=== PATIENT | female | born 1960 | race Hispanic/Latino ===

== ENCOUNTER 2017-01-27 11:44 | Outpatient (CLI) | payer BC ==
--- NOTE | 2017-01-27 16:01 | Mammography Report ---
BILATERAL DIGITAL SCREENING MAMMOGRAM with CAD: 01/27/17 11:44:00 CLINICAL: Routine screening. COMPARISON:01/08/16 FINDINGS: The breasts are almost entirely fatty. No mass, architectural distortion or suspicious calcifications. IMPRESSION: No mammographic evidence of malignancy. BI-RADS CATEGORY: 1 - - Negative RECOMMENDATION: Routine mammographic screening in one year. COMMENT: Patient follow-up letters are generated by our [facility] application.
== END 2017-01-27 11:45 | disposition home or self-care (01) ==
LOC: SPVWC 11:44
PROVIDERS: ATTEND Family Medicine
DX: Z12.31 Encounter for screening mammogram for malignant neoplasm of breast (principal)
CPT/HCPCS: 77067; G0202

== ENCOUNTER 2018-02-06 12:19 | Outpatient (CLI) | payer BC | END 2018-02-06 12:20 | disposition home or self-care (01) | LOC: LAB 12:19 | PROVIDERS: ATTEND Urology | DX: Z85.51 Personal history of malignant neoplasm of bladder (principal); Z88.1 Allergy status to other antibiotic agents | CPT/HCPCS: 88112 ==

== ENCOUNTER 2018-10-10 20:27 | Emergency (ER) | payer BC ==
[2018-10-10] MEDS ORDERED: KETALAR IV ONE (21:34)
[2018-10-10] MEDS ORDERED: DIPRIVAN 10 MG/ML IV ONE (21:34)
[2018-10-10] MEDS ORDERED: ZOFRAN IV ONE (21:34)
[2018-10-10] MEDS ORDERED: NACL 0.9% 500 ML 500 ML IV ONE (21:34)
--- NOTE | 2018-10-10 21:45 | Emergency Department Report ---
ED General Adult HPI - General Chief complaint: Extremity Injury, Lower Stated complaint: DISLOCATED LEFT KNEE Time Seen by Provider: 10/10/18 21:24 Source: patient, family, EMS (ems notes not available at time of chart dictation), RN notes reviewed Mode of arrival: Stretcher Limitations: Physical Limitation - History of Present Illness Initial comments: This is a 57-year-old female who is not known to this provider previously. 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 She reports a resolved history of bladder cancer. She is not taking any prescription medications currently, with the exception of allergy medications, as per the patient's history. Patient reports being in her usual state of he alth earlier on today, when she slipped off a ladder, and believes that her left leg twisted, and possibly got stuck. Prior to falling, she was not having any complaints. She believes that she fell 2-3 feet. She did not hit her head, neck, chest, or abdomen. She denies extremity weakness, numbness. She complains of sharp left knee pain, and left lower extremity pain. Her pain is intermittent, does not radiate anywhere, increases with palpation and decreases with rest. No oral intake within the past 4 hours. -: Sudden Location: left Radiation: non-radiation Quality: aching Consistency: intermittent Improves with: rest Worsens with: movement - Related Data Home Medications Medication Instructions Recorded Confirmed Last Taken Fexofenadine/Pseudoephedrine 1 each PO QDAY 04/03/13 04/03/13 04/08/13 08:00 [Fexofenadine-Pse ER 180-240 Tb] Previous Rx's Medication Instructions Recorded Last Taken Type Ondansetron [Zofran] 4 mg PO Q6HR PRN #10 tablet 04/09/13 Unknown Rx oxyCODONE /ACETAMINOPHEN [Percocet 1 tab PO 6XD PRN #20 tablet 04/09/13 Unknown Rx 5/325] Acetaminophen [Tylenol Arthritis] 650 mg PO Q6HR PRN #30 tablet.er 10/10/18 Unknown Rx Ibuprofen [Motrin] 600 mg PO Q8H PRN #30 tablet 10/10/18 Unknown Rx oxyCODONE [Roxicodone] 5 mg PO Q6HR PRN #15 tablet 10/10/18 Unknown Rx Allergies Allergy/AdvReac Type Severity Reaction Status Date / Time Sulfa (Sulfonamide Allergy Rash Verified 04/08/13 13:26 Antibiotics) ED Review of Systems ROS: Stated complaint: DISLOCATED LEFT KNEE Other details as noted in HPI Constitutional: denies: fever Eyes: denies: eye discharge ENT: denies: epistaxis Respiratory: denies: cough Cardiovascular: denies: chest pain Gastrointestinal: denies: abdominal pain Musculoskeletal: joint swelling, arthralgia, myalgia Neurological: denies: weakness, numbness, paresthesias Psychiatric: denies: anxiety ED Past Medical Hx - Past Medical History Previous Medical History?: No - Surgical History Past Surgical History?: No - Social History Smoking Status: Never Smoker Substance Use Type: None - Medications Home Medications: Home Medications Medication Instructions Recorded Confirmed Last Taken Type Fexofenadine/Pseudoephedrine 1 each PO QDAY 04/03/13 04/03/13 04/08/13 08:00 History [Fexofenadine-Pse ER 180-240 Tb] Ondansetron [Zofran] 4 mg PO Q6HR PRN #10 tablet 04/09/13 Unknown Rx oxyCODONE /ACETAMINOPHEN [Percocet 1 tab PO 6XD PRN #20 tablet 04/09/13 Unknown Rx 5/325] Acetaminophen [Tylenol Arthritis] 650 mg PO Q6HR PRN #30 tablet.er 10/10/18 Unknown Rx Ibuprofen [Motrin] 600 mg PO Q8H PRN #30 tablet 10/10/18 Unknown Rx oxyCODONE [Roxicodone] 5 mg PO Q6HR PRN #15 tablet 10/10/18 Unknown Rx ED Physical Exam - General Limitations: Physical Limitation General appearance: alert, in no apparent distress, obese - Head Head exam: Present: atraumatic, normocephalic - Eye Eye exam: Present: normal appearance, EOMI. Absent: nystagmus - ENT ENT exam: Present: normal exam, normal orophraynx, mucous membranes moist, normal external ear exam - Neck Neck exam: Present: normal inspection, full ROM. Absent: tenderness, meningismus - Respiratory Respiratory exam: Present: normal lung sounds bilaterally. Absent: respiratory distress - Cardiovascular Cardiovascular Exam: Present: regular rate, normal rhythm, normal heart sounds. Absent: bradycardia, tachycardia, irregular rhythm, systolic murmur, diastolic murmur, rubs, gallop - GI/Abdominal GI/Abdominal exam: Present: soft. Absent: distended, tenderness, guarding, rebound, rigid, pulsatile mass - Extremities Exam Extremities exam: Present: normal inspection (2+ pulses noted in the bilateral upper, lower extremities. 5 out of 5 strength bilateral upper, lower extremities. Muscular compartment soft.), tenderness (patient has a laterally displaced left patella, and proximal left fibular tenderness. The anterior compartments are soft.), normal capillary refill. Absent: calf tenderness - Back Exam Back exam: Present: normal inspection, full ROM. Absent: tenderness, CVA tenderness (R), paraspinal tenderness, vertebral tenderness - Neurological Exam Neurological exam: Present: alert, other (Extraocular movements intact. Tongue midline. No facial droop. Facial sensation intact to light touch in the V1, V2, V3 distribution bilaterally. 5 and 5 strength in 4 extremities.. Sensation is intact to light touch in 4 extremities.). Absent: motor sensory deficit - Psychiatric Psychiatric exam: Present: normal affect, normal mood - Skin Skin exam: Present: warm, dry, intact, normal color. Absent: rash ED Course Vital Signs 10/10/18 10/10/18 10/10/18 20:30 22:27 22:34 Temperature 98.2 F Temperature [ 97.8 F Intra-Procedure ] Temperature [ 97.7 F Post-Procedure] Temperature [ 97.8 F Pre-Procedure] Pulse Rate 80 89 Pulse Rate [ 98 H Intra-Procedure ] Pulse Rate [ 100 H Post-Procedure] Pulse Rate [Pre 94 H -Procedure] Respiratory 20 37 H Rate Respiratory 14 Rate [Intra- Procedure] Respiratory 19 Rate [Post- Procedure] Respiratory 21 Rate [Pre- Procedure] Blood Pressure 146/86 Blood Pressure 166/81 [Intra- Procedure] Blood Pressure 154/67 [Pre-Procedure] Blood Pressure 150/69 [Right] O2 Sat by Pulse 100 16 L Oximetry O2 Sat by Pulse 100 Oximetry [Pre- Procedure] 10/10/18 22:50 Temperature Temperature [ Intra-Procedure ] Temperature [ Post-Procedure] Temperature [ Pre-Procedure] Pulse Rate Pulse Rate [ Intra-Procedure ] Pulse Rate [ Post-Procedure] Pulse Rate [Pre -Procedure] Respiratory 18 Rate Respiratory Rate [Intra- Procedure] Respiratory Rate [Post- Procedure] Respiratory Rate [Pre- Procedure] Blood Pressure Blood Pressure [Intra- Procedure] Blood Pressure [Pre-Procedure] Blood Pressure [Right] O2 Sat by Pulse Oximetry O2 Sat by Pulse Oximetry [Pre- Procedure] - Reevaluation(s) Reevaluation #1: 10/10/18 22:14 Differential diagnosis, including not limited to: Fracture, dislocation Assessment and plan: 57-year-old female status post mechanical fall, clinically sober, GCS of 15, with initial x-ray showing left lateral patellar dislocation, left proximal fibular fracture. Additional x-rays ordered. Counseled patient that I would recommend moderate sedation for reduction of patellar dislocation, and application of a splint after completion of acquisition of her x-rays. Patient verbalizes unders tanding. Risks of moderate sedation were discussed with the patient, including remote possibilities of respiratory depression, arrest, and cardiac arrest. Patient is in good health, middle-aged, somewhat obese, therefore ASA class II. No tobacco use. No issues with sedation in the past. Patient gives verbal and informed written consent for moderate sedation. X-rays pending at this time. Reevaluation #2: 10/10/18 22:45 X-ray of the pelvis, femur negative for acute disease. X-ray of the tibia/fibula demonstrate only proximal fibular fracture. Patient's was sedated with 50 mg of ketamine, and 25 mg of propofol, the left patella dislocation was reduced, and a long left leg sugar tong splint is applied, and then a full-length knee immobilizer is applied. The patient tolerated this procedure well. No obvious complications are appreciated as far. Reevaluation #3: 10/10/18 23:00 Patient is awake and alert now. Moving toes. Pulses intact. Has no pain at this time. Patient will be observed as per nursing protocol post-sedation, and then discharged once nursing protocol has been satisfied. I have reiterated discharge instructions to the patient and family, who verbalize understanding. - Moderate Sedation Indications: fracture/dislocation redu ASA Class: II Mallampati Airway Score: 2 Preparation: child monitor applied, pulse oximeter, capnometry used, supplemental O2 applied, suction/airway equipment at bedside, IV secured Ketamine: IV Ketamine Dose: 50 IV Propofol Dose (mgs): 25 Complications: none Patient Tolerated Procedure: well - Orthopedic Joint Reduction Joint #1 Consent Obtained: verbal consent, written consent, emergent situation Time Out Performed: Yes Side: left Joint Reduction Location: knee/patella Analgesia: moderate sedation Post-Reduction Neuro Exam: intact Post-Reduction Vascular Exam: intact Post Reduction X-Ray Obtained: No (clinically reduced) Splint Applied: Yes Patient Tolerated Procedure: well - Orthopedic Splinting/Casting Injury #1 Side: left Lower Extremity Injury Location: knee, lower leg Lower Extremity Immobilizer: knee immobilizer (Sugar tong splint) Other Orthopedic Equipment: crutches ED Medical Decision Making - Lab Data Vital Signs 10/10/18 10/10/18 20:30 22:27 Temperature 98.2 F Temperature [ 97.8 F Intra-Procedure ] Temperature [ 97.7 F Post-Procedure] Temperature [ 97.8 F Pre-Procedure] Pulse Rate 80 Pulse Rate [ 98 H Intra-Procedure ] Pulse Rate [ 100 H Post-Procedure] Pulse Rate [Pre 94 H -Procedure] Respiratory 20 Rate Respiratory 14 Rate [Intra- Procedure] Respiratory 19 Rate [Post- Procedure] Respiratory 21 Rate [Pre- Procedure] Blood Pressure 146/86 Blood Pressure 166/81 [Intra- Procedure] Blood Pressure 154/67 [Pre-Procedure] O2 Sat by Pulse 100 Oximetry O2 Sat by Pulse 100 Oximetry [Pre- Procedure] - Radiology Data Radiology results: report reviewed, image reviewed Critical care attestation.: If time is entered above; I have spent that time in minutes in the direct care of this critically ill patient, excluding procedure time. ED Disposition Clinical Impression: Dislocation of left patella, Fracture of left proximal fibula Disposition: - TO HOME OR SELFCARE Is pt being admited?: No Does the pt Need Aspirin: No Condition: Good Instructions: Leg Fracture (ED), Moderate Sedation (ED), Patellar Dislocation (ED) Additional Instructions: Pain typically gets worse before it gets better after fracture, dislocation, and mechanical fall. Rest, avoid heavy lifting, and remain nonweightbearing on the left lower extremity. Use the crutches as directed, keep the splint in place and follow up with an orthopedist within the next 5-7 days. Take pain medication as needed/directed, do not consume alcohol taking oxycodone, and do not drive, or make important decisions of taking the oxycodone. Return to the emergency room right away with new pain, worsening of pain, migration of pain, extremity weakness, numbness, projectile vomiting, change in mental status, confusion,, worsening or different symptoms not present on the initial ER evaluation. Prescriptions: Ibuprofen [Motrin] 600 mg PO Q8H PRN #30 tablet PRN Reason: Pain oxyCODONE [Roxicodone] 5 mg PO Q6HR PRN #15 tablet PRN Reason: Pain Acetaminophen [Tylenol Arthritis] 650 mg PO Q6HR PRN #30 tablet.er PRN Reason: Pain Referrals: YULIANA GREENFIELD MD [Primary Care Provider] - 3-5 Days LIONEL COYNE MD [Staff Physician] - 3-5 Days [facility] [Provider Group] - 3-5 Days Forms: Work/School Release Form(ED)
[2018-10-10] MEDS ORDERED: KETAMINE HCL IV ONE (22:00)
[2018-10-10] MEDS ORDERED: SODIUM CHLORIDE FLUSH SYRINGE 10 ML IV NR (22:00)
--- NOTE | 2018-10-10 22:01 | XRay Report ---
PROCEDURE: XR KNEE 1-2V LT TECHNIQUE: Left knee radiographs, AP, lateral, and crosstable lateral views. HISTORY: trauma COMPARISONS: None FINDINGS: There is a lateral patellar dislocation. An acute oblique comminuted fracture is noted involving the proximal diaphysis and fibular separation of the fragments by about 6 mm. No radiopaque foreign dk s. There is no obvious joint effusion. IMPRESSION: Lateral patellar dislocation Acute proximal fibular diaphysis fracture This document is electronically signed by Luis Horton MD., October 10 2018 09:59:46 PM ET
--- NOTE | 2018-10-10 22:39 | XRay Report ---
PROCEDURE: XR TIBIA FIBULA 2V LT TECHNIQUE: Left tibia and fibula radiographs, AP and lateral views. HISTORY: fall leg pain COMPARISONS: None. FINDINGS: Fracture (s) and/or Dislocation(s): An acute comminuted fracture is noted involving the proximal keila physis of fibula with separation of the fragments by about 6 mm.. Soft tissues: Normal. Bone mineralization: Normal. Foreign bodies: None. IMPRESSION: Limited study due to the overlying artifacts Acute fracture proximal fibular diaphysis. This document is electronically signed by Luis Horton MD., October 10 2018 10:37:29 PM ET
--- NOTE | 2018-10-10 22:41 | XRay Report ---
PROCEDURE: XR PELVIS 1-2V TECHNIQUE: Pelvis radiograph, one view. HISTORY: fall leg pain COMPARISONS: None FINDINGS: Fracture(s): None Joint spaces: Bilateral hip joints are normal. Bilateral facet arthropathy is noted involving lower l umbar spine. Soft tissues: Normal Foreign bodies: None Bone mineralization: Normal IMPRESSION: No acute abnormality This document is electronically signed by uLis Horton MD., October 10 2018 10:39:14 PM ET
--- NOTE | 2018-10-10 22:43 | XRay Report ---
PROCEDURE: XR FEMUR 2+V LT TECHNIQUE: Left femur radiographs, AP and lateral views. HISTORY: fall leg pain COMPARISONS: None . FINDINGS: Limited study due to patient's body habitus. Bony alignment is within normal limits. An obvious acute fracture is not identified. Soft tissues are unremarkable. There are no radiopaque foreign bodies. IMPRESSION: Limited study due to patient's body habitus No obvious acute abnormality This document is electronically signed by Luis Horton MD., October 10 2018 10:40:52 PM ET
[2018-10-11 00:08] VITALS: BP 137/69
== END 2018-10-11 00:07 | disposition home or self-care (01) ==
LOC: ED 20:27
DX: S83.005A Unspecified dislocation of left patella, initial encounter (principal); S82.832A Other fracture of upper and lower end of left fibula, initial encounter for closed fracture; W11.XXXA Fall on and from ladder, initial encounter; Y93.89 Activity, other specified; Y92.89 Other specified places as the place of occurrence of the external cause; Y99.8 Other external cause status
CPT/HCPCS: 27560; 72170; 73552; 73560; 73590; 96374; 99285; J2405; J2704; J7040

== ENCOUNTER 2019-03-04 14:33 | Outpatient (CLI) | payer BC ==
--- NOTE | 2019-03-04 16:21 | XRay Report ---
LEFT TIBIA AND FIBULA, 2 VIEWS INDICATION: S83.005A, UNSPECIFIED DISLOCATION OF LEFT PATELLA, INITIAL ENENCO. COMPARISON: None. IMPRESSION: No acute osseous or soft tissue abnormality. Chronic remodeling fracture of the proxi mal fibular shaft is noted. Signer Name: Markos Dias Jr, MD Signed: 03/04/2019 4:17 PM Workstation Name: [id number]
== END 2019-03-04 14:34 | disposition home or self-care (01) ==
LOC: XRAY 14:33
PROVIDERS: ATTEND Orthopaedic Surgery
DX: S82.402A Unspecified fracture of shaft of left fibula, initial encounter for closed fracture (principal); Z90.89 Acquired absence of other organs; X58.XXXA Exposure to other specified factors, initial encounter; Y93.89 Activity, other specified; Y92.89 Other specified places as the place of occurrence of the external cause; Y99.8 Other external cause status

== ENCOUNTER 2020-06-17 11:18 | Outpatient (CLI) | payer BC ==
[2020-06-17 13:18] LABS: Basophils % (Auto) 0.6 % (0.0-1.8); Eosinophils # (Auto) 0.1 K/mm3 (0.0-0.4); Eosinophils % (Auto) 2.1 % (0.0-4.3); Hematocrit 39.4 % (30.3-42.9); Hemoglobin 13.7 gm/dl (10.1-14.3); Lymphocytes # (Auto) 1.9 K/mm3 (1.2-5.4); Lymphocytes % (Auto) 27.2 % (13.4-35.0); Mean Corpuscular HGB Conc 35 % (30-34); Mean Corpuscular Volume 90 fl (79-97); Monocytes # (Auto) 0.5 K/mm3 (0.0-0.8); Monocytes % (Auto) 6.6 % (0.0-7.3); Platelet Count 231 K/mm3 (140-440); Red Blood Count 4.36 M/mm3 (3.65-5.03); Red Cell Distribution Width 13.7 % (13.2-15.2)
--- NOTE | 2020-06-17 13:27 | Mammography Report ---
DIGITAL SCREENING MAMMOGRAM WITH CAD, 06/17/2020 CLINICAL INFORMATION / INDICATION: Routine screening mammography. SCREENING MAMMO TECHNIQUE: Digital bilateral 2D mammography was obtained in the craniocaudal and mediolateral obliqu e projections. This examination was interpreted with the benefit of Computer-Aided Detection analysis . COMPARISON: Prior mammogram 01/27/2017 FINDINGS: Breast Density: The breasts are almost entirely fatty. No dominant mass, suspicious calcifications, or architectural distortion in the right breast. There is a 9 mm nodular density seen in the 2 to 3:00 position of the left breast, middle depth, whic h requires further evaluation. IMPRESSION: 1. A nodular density in the left breast requires further evaluation with targeted ultrasound and janine tional views if needed. Follow up recommendation: Ultrasound BI-RADS Category 0: Incomplete. Needs additional imaging evaluation and/or prior mammograms for ramesh salguero. A "normal" or negative report should not discourage follow up or biopsy of a clinically significant f inding. A written summary of these findings will be mailed to the patient. The patient will be entered into a mammography reporting system which will generate a reminder letter for the patient's next appointmen t at the appropriate interval. The [employer] recommends yearly mammograms starting at age 40 and continuing as l sean as a woman is in good health. Breast MRI is recommended for women with an approximate 20-25% or greater lifetime risk of breast cancer, including women with a strong family history of breast or ova angelo cancer or who have been treated for Hodgkin's disease. Signer Name: Kassandra Fitch MD Signed: 06/17/2020 1:23 PM Workstation Name: [id number]
[2020-06-17 13:32] LABS: Alanine Aminotransferase 32 units/L (7-56); Blood Urea Nitrogen 15 mg/dL (7-17); Calcium 9.8 mg/dL (8.4-10.2); Chol/HDL Ratio 3.66 %; HDL Cholesterol 62 mg/dL (40-59); Hemolysis Index 5; LDL Cholesterol,Direct 152 mg/dL (50-130)
[2020-06-17 13:35] LABS: BUN/Creatinine Ratio 21
[2020-06-17 13:44] LABS: Free T4 (Free Thyroxine) 0.87 ng/dL (0.76-1.46)
== END 2020-06-17 11:19 | disposition home or self-care (01) ==
LOC: MAMMO 11:18
PROVIDERS: ATTEND Family Medicine
DX: Z12.31 Encounter for screening mammogram for malignant neoplasm of breast (principal); N63.25 Unspecified lump in the left breast, overlapping quadrants; Z00.00 Encounter for general adult medical examination without abnormal findings; Z85.51 Personal history of malignant neoplasm of bladder; Z13.29 Encounter for screening for other suspected endocrine disorder; Z13.220 Encounter for screening for lipoid disorders
CPT/HCPCS: 36415; 77067; 80053; 80061; 83036; 84439; 84443; 85025

== ENCOUNTER 2020-07-01 09:56 | Outpatient (CLI) | payer BC ==
--- NOTE | 2020-07-01 10:44 | Ultrasound Report ---
LEFT BREAST ULTRASOUND INDICATION: Evaluate finding noted in the left upper outer breast on the recent screening mammogram. COMPARISON: 06/17/2020, 01/27/2017, 01/08/2016. FINDINGS: A targeted ultrasound of the left upper outer breast was performed to evaluate the site of previously noted finding which was seen in this region on the recent screening mammogram. Located at the 2:00 position, 4 cm from the nipple, is a 4 x 3 x 3 mm circumscribed hypoechoic lesion. The findi ng is felt to reflect a mildly complicated or debris filled cyst. Its location would appear to corres pond with the mammographic finding. IMPRESSION: Suspected mildly complicated left breast cyst at the 2:00 position for which six-month follow-up left breast diagnostic mammogram and ultrasound is recommended. BI-RADS Category 3: Probably Benign. A "normal" or negative report should not discourage follow up or biopsy of a clinically significant f inding. A written summary of these findings will be mailed to the patient. FURTHER INFORMATION: According to the [employer], yearly mammograms are recommend ed starting at age 40 and continuing as long as a woman is in good health. Breast MRI is recommended for women with an approximately 20-25% or greater lifetime risk of breast cancer, including women wi th a strong family history of breast or ovarian cancer and women who have been treated for Hodgkin's disease. Signer Name: Ferny Sewell MD Signed: 07/01/2020 10:39 AM Workstation Name: [id number]
--- NOTE | 2020-07-01 11:15 | Mammography Report ---
LEFT DIAGNOSTIC MAMMOGRAM INDICATION: Evaluate finding noted previously in the left breast on the recent screening mammogram. COMPARISON: 06/17/2020, 01/27/2017, 01/08/2016, 01/02/2015. FINDINGS: Spot mammographic views focused in the left upper outer breast were performed to evaluate t he site of a previously noted finding seen in this region on the recent screening mammogram. A persis tent partially circumscribed low-density lesion appears slightly less prominent on the current images . A similar mammographic appearance can be seen dating back to 2014 which would suggest a benign etio logy. It is unclear if the cystic lesion noted on ultrasound corresponds with the mammographic findin g. IMPRESSION: Left upper outer breast focal asymmetry is probably benign. A six-month follow-up left breast diagnos tic mammogram and targeted ultrasound is recommended. BI-RADS Category 3: Probably Benign. Signer Name: Ferny Sewell MD Signed: 07/01/2020 11:11 AM Workstation Name: [id number]
== END 2020-07-01 09:57 | disposition home or self-care (01) ==
LOC: US 09:56
PROVIDERS: ATTEND Family Medicine
DX: N60.02 Solitary cyst of left breast (principal); N64.89 Other specified disorders of breast

== ENCOUNTER 2020-07-15 10:28 | Outpatient (CLI) | payer BC ==
--- NOTE | 2020-07-16 15:43 | Cat Scan Report ---
CT ABDOMEN AND PELVIS WITHOUT CONTRAST INDICATION / CLINICAL INFORMATION: ABD PAIN TECHNIQUE: Axial CT images were obtained through the abdomen and pelvis without IV contrast. All CT scans at this location are performed using CT dose reduction for ALARA by means of automated exposure control. COMPARISON: None available. FINDINGS: LOWER CHEST: Calcified granulomas in the left lower lobe. Lung bases are clear of consolidation. LIVER: Borderline hepatomegaly, measuring 18.7 cm. GALLBLADDER/BILIARY TREE: Unremarkable PANCREAS: Unremarkable SPLEEN: Splenic granulomata, otherwise unremarkable. ADRENALS: Unremarkable KIDNEYS / URETER: No discrete renal or ureteral calculus. No hydronephrosis. URINARY BLADDER: Bladder is partially decompressed, though grossly unremarkable. REPRODUCTIVE ORGANS: Unremarkable STOMACH / SMALL BOWEL: Small hiatal hernia is present. Stomach is otherwise unremarkable. Small bowel is normal in caliber. No evidence of bowel inflammation. COLON: The colon is unremarkable. The appendix is normal in caliber. LYMPH NODES: No significant adenopathy. VASCULATURE: No significant abnormality. OTHER: No free air, free fluid, or focal fluid collection is identified. There is a fat-containing pe riumbilical hernia. SKELETAL SYSTEM: Moderate lower lumbar spondylosis with moderate disc space height loss at L4-L5 and L5-S1 and moderate to severe lower lumbar facet arthropathy. No acute process identified. IMPRESSION: 1. No acute abnormality of the abdomen or pelvis. 2. Chronic, incidental findings detailed above. Signer Name: Pernell Mcwilliams MD Signed: 07/15/2020 12:34 PM Workstation Name: [id number]
== END 2020-07-15 10:29 | disposition home or self-care (01) ==
LOC: CT 10:28
PROVIDERS: ATTEND Urology
DX: R16.0 Hepatomegaly, not elsewhere classified (principal); J84.10 Pulmonary fibrosis, unspecified; K44.9 Diaphragmatic hernia without obstruction or gangrene; K42.9 Umbilical hernia without obstruction or gangrene; M47.816 Spondylosis without myelopathy or radiculopathy, lumbar region; Z85.51 Personal history of malignant neoplasm of bladder
CPT/HCPCS: 74176

== ENCOUNTER 2020-08-05 11:16 | Day surgery (SDC) | payer BC ==
[~2020-08-05 11:16] MED LIST: LACTATED RINGERS 1,000 ML IV SCH; MIDAZOLAM 2 MG/2 ML INJ IV NR
[2020-08-05] MEDS ORDERED: fentaNYL 100 MCG/2 ML INJ IV PRN (11:35)
[2020-08-05] MEDS ORDERED: ONDANSETRON 4 MG/2 ML INJ IV PRN (11:35)
--- NOTE | 2020-08-05 11:35 | Anesthesia Consultation ---
Anesthesia Consult and Med Hx Date of service: 08/05/20 - Airway Anesthetic Teeth Evaluation: Good ROM Head & Neck: Adequate Mental/Hyoid Distance: Adequate Mallampati Class: Class II Intubation Access Assessment: Probably Good - Pulmonary Exam CTA: Yes - Cardiac Exam Cardiac Exam: RRR - Pre-Operative Health Status ASA Pre-Surgery Classification: ASA3 Proposed Anesthetic Plan: General - Pulmonary Hx Smoking: No Hx Respiratory Symptoms: No Hx Sleep Apnea: No (ONDINA PRE SCREEN HIGH RISK) - Cardiovascular System Hx Hypertension: No Hx Heart Attack/AMI: No - Central Nervous System CVA: No - Endocrine Hx Renal Disease: No Hx Liver Disease: No Hx Insulin Dependent Diabetes: No Hx Non-Insulin Dependent Diabetes: No Hx Thyroid Disease: No - Other Systems Hx Cancer: Yes (hx bladder ca s/p chemo 2013) Hx Obesity: Yes (BMI 43) - Additional Comments Anesthesia Medical History Comments: Hx PVCs under GA which resolved with IV lidocaine. Has had GA since then without complications.
--- NOTE | 2020-08-05 11:35 | Anesthesia Day of Surgery ---
Anesthesia Day of Surgery - Day of Surgery Patient Examined: Yes Patient H&P Reviewed: Yes Patient is NPO: Yes
[2020-08-05] MEDS ORDERED: ceFAZolin/STERILE WATER 2 GM/20 ML SYRINGE IV NR (12:00)
[2020-08-05] MEDS ORDERED: ONDANSETRON 4 MG/2 ML INJ ONE (12:01)
[2020-08-05] MEDS ORDERED: dexAMETHasone 20 MG/5 ML VIAL ONE (12:01)
[2020-08-05] MEDS ORDERED: fentaNYL 100 MCG/2 ML INJ ONE ×2 (12:01→13:15)
[2020-08-05] MEDS ORDERED: propofoL 200 MG/20 ML VIAL IV ONE ×2 (12:02→13:25)
[2020-08-05] MEDS ORDERED: LIDOCAINE MPF (2%) 20 MG/1 ML VIAL 5 ML ONE (12:02)
[2020-08-05] MEDS ORDERED: KETOROLAC 30 MG/1 ML INJ ONE (13:00)
[2020-08-05] MEDS ORDERED: PHENYLEPHRINE 10 MG/1 ML INJ SDV ONE (13:05)
[2020-08-05] MEDS ORDERED: WATER FOR IRRIG STERILE 2000 ML IR ONE (13:30)
--- NOTE | 2020-08-05 13:50 | Post Operative Note ---
Date of procedure: 08/05/20 Pre-op diagnosis: hematuria Post-op diagnosis: same Findings: cystitis cystica Procedure: cysto bx rpgs Anesthesia: GETA Surgeon: SONAL MALDONADO Estimated blood loss: none Pathology: list (bladder) Specimen disposition: to lab Condition: stable Disposition: PACU
--- NOTE | 2020-08-05 13:52 | Discharge Summary ---
Short Stay Discharge Plan Activity: other (no straining ) Weight Bearing Status: Full Weight Bearing Diet: low fat, low cholesterol, low salt Special Instructions: other (inc fluids ) Durable Medical Equipment Needed Upon Discharge: other ([place]ork ) Follow up with: ADONIS ISRAEL MD [Primary Care Provider] - 7 Days SONAL MALDONADO MD [Staff Physician] - 3 Days
--- NOTE | 2020-08-05 14:22 | Operative Report ---
PREOPERATIVE DIAGNOSIS: Hematuria. 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 PROCEDURE: Cystoscopy, retrograde biopsies, fulguration, cytology. SURGEON: Dr. Lucero. ANESTHESIA: General. FINDINGS: This is a woman with hematuria. CT was basically unremarkable. She now presents for treatment. DESCRIPTION OF PROCEDURE: The patient was brought to the operating room and placed on the operating room table. Following induction of anesthesia, placed in lithotomy position, prepped and draped in usual sterile fashion. The urethra was slightly retracted. Cystourethroscopy showed diffuse cystitis cystica. Biopsies were obtained. There were no papillary lesions. Bladder was slightly small in capacity and well visualized with both 30 and 70-degree lens. Area was cauterized and was biopsied. The patient tolerated the procedure well. We left the Rinaldi, we will leave it for 2-4 days just to be sure there is no bleeding, but the bladder was very granular and injected in certain areas where there was significant cystitis cystica diffusely, mostly posteriorly and laterally. JOB# [id number] GEOFF/THADDEUS
--- NOTE | 2020-08-05 15:06 | Post Anesthesia Evaluation ---
- Post Anesthesia Evaluation Patient Participated: Yes Airway Patent: Yes Stable Respiratory Function: Yes Nausea/Vomiting: No Temp > 96.8F: Yes Pain Manageable: Yes Adequeate Hydration: Yes Anesthesia Complications: No
[2020-08-05 15:36] VITALS: BP 137/74
--- NOTE | 2020-08-05 17:04 | Fluoroscopy Report ---
INTRAOPERATIVE FLUOROSCOPY: RETROGRADE UROGRAPHY INDICATION: HEMATURIA. TECHNIQUE: Intraoperative spot images were obtained during the procedure. FINDINGS: After injection of the left ureter/left renal collecting system, there is a small filling defect at t he UPJ which may be a gas bubble. Calyces appear sharp. No filling defects are seen in the right ro ecting system. Correlate with findings at the time of injection. Fluoroscopy Time: 12 seconds. Fluoroscopy Images: 9. Signer Name: Mateusz Colin MD Signed: 08/05/2020 4:59 PM Workstation Name: [id number]
== END 2020-08-05 15:15 | disposition home or self-care (01) ==
LOC: OR 11:16
PROVIDERS: ATTEND Urology
DX: N30.91 Cystitis, unspecified with hematuria (principal); N32.89 Other specified disorders of bladder; E66.9 Obesity, unspecified; M19.90 Unspecified osteoarthritis, unspecified site; Z88.2 Allergy status to sulfonamides; Z79.899 Other long term (current) drug therapy; Z98.890 Other specified postprocedural states; Z86.19 Personal history of other infectious and parasitic diseases; Z98.891 History of uterine scar from previous surgery; Z91.81 History of falling; Z85.51 Personal history of malignant neoplasm of bladder; Z68.41 Body mass index [BMI] 40.0-44.9, adult
CPT/HCPCS: 52204; 74420; 88112; 88304; 88305; 88341; 88342; A4217; C1758; J0690; J1100; J1885; J2370; J2405; J2704; J3010; J7120; Q9967; U0003

== ENCOUNTER 2020-11-23 13:19 | Outpatient (CLI) | payer BC ==
--- NOTE | 2020-11-23 17:26 | Ultrasound Report ---
LEFT DIGITAL DIAGNOSTIC MAMMOGRAM WITH CAD , 11/23/2020 LEFT LIMITED BREAST ULTRASOUND CLINICAL INFORMATION / INDICATION: Short-term follow-up left mammogram TECHNIQUE: Digital left mammographic imaging was performed. Spot compression views were obtained. Platt ited ultrasound was performed. This examination was interpreted with the benefit of Computer-Aided De tection (CAD) analysis. COMPARISON: Prior mammograms 06/17/2020, 07/01/2020, 01/27/2017, and prior left breast ultrasound 07/01 FINDINGS: Breast Density: There are scattered areas of fibroglandular density. MAMMOGRAPHIC FINDINGS: There has not been significant interval change in the 9 mm small oval nodular density in the left breast at approximately 2:00, middle depth, compared with th 06/17/2020 mammogram. ULTRASOUND FINDINGS: Targeted ultrasound evaluation was performed of the area of interest. Sonograp hic evaluation demonstrates a 4 mm hypoechoic nodule in the 2:00 position of the left breast, 4 cm fr om the nipple. This is unchanged from the prior ultrasound of 07/01/2020. It is unclear if this corre lates with the mammographic finding due to a slight size discrepancy. IMPRESSION: Stable appearance of both the left mammogram and left breast ultrasound. Continued 6 sayda h follow-up left mammogram and ultrasound is recommended to assess stability. Follow up recommendation: Short term follow up in 6 months. BI-RADS Category 3: Probably Benign. Followup in 6 months. A "normal" or negative report should not discourage follow up or biopsy of a clinically significant f inding. A written summary of these findings will be mailed to the patient. The patient will be entered into a mammography reporting system which will generate a reminder letter for the patient's next appointmen t at the appropriate interval. According to the [employer], yearly mammograms are recommended starting at age 40 and continuing as long as a woman is in good health. Breast MRI is recommended for women with an chiquita roximately 20-25% or greater lifetime risk of breast cancer, including women with a strong family his tory of breast or ovarian cancer and women who have been treated for Hodgkin's disease. Signer Name: Doris Hernandez MD Signed: 11/23/2020 5:21 PM Workstation Name: [id number]
== END 2020-11-23 13:20 | disposition home or self-care (01) ==
LOC: SPVWC 13:19
PROVIDERS: ATTEND Family Medicine
DX: N63.21 Unspecified lump in the left breast, upper outer quadrant (principal); N63.0 Unspecified lump in unspecified breast; R92.8 Other abnormal and inconclusive findings on diagnostic imaging of breast